=== PATIENT | female | born 1960 | race Caucasian/White ===

== ENCOUNTER 2017-10-17 18:18 | Emergency (ER) | payer MEDICAID ==
[~2017-10-17] VITALS: Ht 152.4 cm; Wt 61.2 kg
--- NOTE | 2017-10-17 18:40 | NUR ---
PT BB FAMILY MEMBER WITH C/O DIZZINESS IN THE MORNINGS, +N/V. PT DENIES DIARRHEA. PT IS AAOX4. RESP EVEN AND UNLABORED. NO S/S OF ACUTE DISTRESS NOTED. SKIN WNL - DIAPHORESIS. VSS. PT COMFORT AND SAFETY MEASURES IN PLACE. FAMILY MEMBER BEDSIDE WITH PT. AWAITING MD FOR EVAL.
[2017-10-17 19:57] LABS: BASOPHILS % (AUTO) 0.3 % (0.0-2.0); EOSINOPHILS # (AUTO) 0.1 /CMM (0.0-0.7); EOSINOPHILS % (AUTO) 1.1 % (0.0-6.0); HEMATOCRIT 27 % (33-45); HEMOGLOBIN 9.3 g/dL (11.5-14.8); LYMPHOCYTES # (AUTO) 2.1 /CMM (0.8-4.8); LYMPHOCYTES % (AUTO) 20.7 % (20.0-44.0); MEAN CORPUSCULAR HEMOGLOBIN 28 PG (26.0-33.0); MEAN CORPUSCULAR HGB CONC 34 g/dl (31.0-36.0); MEAN CORPUSCULAR VOLUME 81 fL (82-100); MONOCYTES # (AUTO) 0.7 /CMM (0.1-1.30); MONOCYTES % (AUTO) 6.8 % (2.0-12.0); NEUTROPHILS # (AUTO) 7.3 /CMM (1.8-8.9); NEUTROPHILS % (AUTO) 71.1 % (43.0-81.0); PLATELET COUNT (AUTO) 383 /CMM (150-450); RDW COEFFICIENT OF VARIATION 12.8 (11.5-15.0); RED BLOOD CELL COUNT(AUTO) 3.36 MIL/uL (4.0-5.2); WHITE BLOOD COUNT (AUTO) 10.2 K/uL (4.3-11.0)
[2017-10-17] MEDS ORDERED: ONDANSETRON 4 MG TAB.RAPDIS ONE (19:58)
[2017-10-17] MEDS ORDERED: ONDANSETRON 4 MG TAB.RAPDIS SL ONE (20:00)
[2017-10-17 20:03] LABS: APPEARANCE,URINE Clear (CLEAR); BILIRUBIN,URINE Negative (NEGATIVE); BLOOD, URINE Negative Ery/uL (NEGATIVE); COLOR,URINE Yellow (YELLOW); KETONES,URINE Negative (NEGATIVE); LEUKOCYTE ESTERASE ,URINE Trace (NEGATIVE); NITRITE, URINE Negative (NEGATIVE); PROTEIN,URINE 30 mg/dl (NEGATIVE); UGLUCOSE Negative (NEGATIVE); UROBILINOGEN,URINE 0.2 EU/dL (0.2)
[2017-10-17 20:06] LABS: BACTERIA,URINE Few /HPF (None Seen); RBC,URINE NONE SEEN /HPF (0-2); SQUAMOUS EPITHELIAL CELL,UR Few /HPF (None Seen)
[2017-10-17 20:11] LABS: CALCIUM, SERUM 9.8 mg/dL (8.5-10.1); CREATININE 0.7 mg/dL (0.6-1.3); POTASSIUM 4.7 mmol/L (3.5-5.1)
--- NOTE | 2017-10-17 20:59 | NUR ---
Patient discharged to home in stable condition. Written and verbal after care instructions along with Rx given. Patient verbalizes understanding of instruction. VSS upon discharge. Pt ambulated with steady gait out of ER accompanied by daughter.
[2017-10-17 21:00] VITALS: BP 131/77
[2017-10-17 21:09] LABS: OCCULT BLOOD STOOL NEGATIVE (NEGATIVE)
== END 2017-10-17 21:01 | disposition home or self-care (01) ==
LOC: ER 18:36
DX: D64.9 Anemia, unspecified (principal); R11.2 Nausea with vomiting, unspecified; E11.65 Type 2 diabetes mellitus with hyperglycemia; I10 Essential (primary) hypertension; C53.9 Malignant neoplasm of cervix uteri, unspecified; Z85.41 Personal history of malignant neoplasm of cervix uteri
CPT/HCPCS: 36415; 80048; 81001; 82272; 82962; 85025; 87086; 99284; A4606; Q0162; Z7610; 81000-TC